=== PATIENT | male | born 1940 | race Caucasian/White ===

== ENCOUNTER 2016-07-30 09:24 | Outpatient (CLI) | payer OTHER ==
[2016-01-06 23:21] VITALS: BP 154/83
[2016-07-30 10:19] LABS: eGFR (African) > 60; eGFR (Non-African) > 60
== END 2016-07-30 09:25 ==
LOC: LAB 09:24
PROVIDERS: ATTEND Family Medicine
DX: I10 Essential (primary) hypertension (principal); E78.5 Hyperlipidemia, unspecified
CPT/HCPCS: 36415; 80053; 80061

== ENCOUNTER 2017-07-30 09:15 | Outpatient (CLI) | payer OTHER ==
[2016-01-06 23:21] VITALS: BP 154/83
[2017-07-30 10:07] LABS: eGFR (African) > 60; eGFR (Non-African) > 60
== END 2017-07-30 09:16 ==
LOC: LAB 09:15
PROVIDERS: ATTEND Family Medicine
DX: I10 Essential (primary) hypertension (principal)
CPT/HCPCS: 36415; 80053; 80061

== ENCOUNTER 2018-07-13 08:51 | Outpatient (CLI) | payer OTHER ==
[2016-01-06 23:21] VITALS: BP 154/83
[2018-07-13 09:36] LABS: eGFR (Non-African) > 60
== END 2018-07-13 08:53 ==
LOC: LAB 08:51
PROVIDERS: ATTEND Family Medicine
DX: E78.5 Hyperlipidemia, unspecified (principal)
CPT/HCPCS: 36415; 80053; 80061

== ENCOUNTER 2018-08-20 10:06 | Outpatient (CLI) | payer OTHER ==
[2016-01-06 23:21] VITALS: BP 154/83
== END 2018-08-20 10:08 ==
LOC: LAB 10:06
PROVIDERS: ATTEND Family Medicine
DX: Z11.59 Encounter for screening for other viral diseases (principal)
CPT/HCPCS: 36415; 86765